=== PATIENT | female | born 1970 | race Caucasian/White ===

== ENCOUNTER 2023-08-25 17:18 | Emergency (ER) | payer OTHER ==
--- NOTE | 2023-08-25 18:54 | ED Physician Documentation ---
History of Present Illness - Stated complaint Stated Complaint: COUGH/ARM/RIB PX - Chief complaint Chief Complaint: Resp - History obtained from History obtained from: Patient - Additonal information Additional information: Otherwise healthy 53-year-old woman has had cough for 2 weeks. Nonproductive and not associated with shortness of breath. The cough has been quite significant though and over the last 3 days has developed right chest wall pain with also some right neck pain and pain radiating down the right arm. PD PAST MEDICAL HISTORY - Past Medical History Past Medical History: No - Past Surgical History Past Surgical History: Yes General: Appendectomy - Present Medications Home Medications: Ambulatory Orders Medication Instructions Recorded Confirmed Benzonatate 1 cap PO TID PRN #15 cap 08/25/23 predniSONE [Deltasone] 20 mg PO [id number] #21 tab 08/25/23 - Allergies Allergies/Adverse Reactions: Allergies Allergy/AdvReac Type Severity Reaction Status Date / Time No Known Drug Allergies Allergy Verified 08/25/23 17:34 - Social History Does the pt smoke?: No Smoking Status: Never smoker Does the pt drink ETOH?: Yes Does the pt have substance abuse?: No - Immunizations Immunizations are current?: Yes PD ED PE NORMAL - Vitals Vital signs reviewed: Yes - General General: Alert and oriented X 3, No acute distress - HEENT HEENT: PERRL, EOMI - Neck Neck: Supple, no meningeal sign, No bony TTP, Other (Mild tenderness over the muscles of the superior left shoulder) - Cardiac Cardiac: RRR, No murmur - Respiratory Respiratory: No respiratory distress, Clear bilaterally - Abdomen Abdomen: Non tender - Derm Derm: Normal color, Warm and dry - Extremities Extremities: Other (Normal and equal bilateral nurses medical assistants phlebotomists strength, thumb extension, interosseous strength, and flexion extension at the wrists. No sensory deficit anywhere in the upper extremities.) - Neuro Neuro: Alert and oriented X 3, Normal speech Results - Vitals Vitals: Vital Signs - 24 hr 08/25/23 08/25/23 17:30 19:14 Temperature 36.4 C L 36.5 C Heart Rate 106 H 88 Respiratory 16 16 Rate Blood Pressure 134/83 H 128/80 O2 Saturation 99 100 - Rads (name of study) 2 view chest x-ray showing mild prominence of the interstitial markings which could be consistent with a viral or atypical infection. No consolidativ Relevant Findings:: Final report received, EMP independent interpretation of test PD Medical Decision Making - ED course ED course: I think this is just chest wall strain from coughing. Some of the radiation into the arm is concerning for cervical radiculopathy but with normal upper extremity neuroexam making that less likely and follow-up advised. Departure - Departure Disposition: Home, Self Care Clinical Impression: Cough, Chest pain Condition: Good Record reviewed to determine appropriate education?: Yes Instructions: ED Cough Chronic Cause Unkn Prescriptions: Benzonatate 1 cap PO TID PRN #15 cap PRN Reason: Cough predniSONE [Deltasone] 20 mg PO [id number] #21 tab Comments: I sent your prescription electronically to the [facility] in [place]. As discussed, the x-ray looks fine to me and I suspect you are really just sore from the coughing. A pinched nerve in your neck is somewhat less likely but not impossible and would recommend you follow-up with your primary care physician on return home for reevaluation especially if not improving in the next couple of weeks. Return for new or worsening symptoms. Forms: PCP List Discharge Date/Time: 08/25/23 19:14
[2023-08-25 19:21] VITALS: BP 128/80; O2SAT 100
--- NOTE | 2023-08-25 19:29 | XRAY Report ---
PROCEDURE: Chest 2V INDICATIONS: cough TECHNIQUE: 2 views of the chest were acquired. COMPARISON: None. FINDINGS: Surgical changes and devices: None. Lungs and pleura: No pleural effusions or pneumothorax. Mild prominence of interstitial markings cou ld indicate a viral or atypical pneumonia. No focal consolidation. Mediastinum: Mediastinal contours appear normal. Heart size is normal. Bones and chest wall: No suspicious bony lesions. Overlying soft tissues appear unremarkable. IMPRESSION: Mild prominence of interstitial markings could indicate a viral or atypical pneumonia. No focal conso lidation. Reviewed by: Jose Mccain MD on 08/25/2023 7:28 PM PDT Approved by: Jose Mccain MD on 08/25/2023 7:28 PM PDT Station ID: [id number]
== END 2023-08-25 19:14 | disposition home or self-care (01) ==
LOC: ED 17:18
DX: R05.9 Cough, unspecified (principal); R07.89 Other chest pain
CPT/HCPCS: 99283; 99284